=== PATIENT | female | born 1995 | race Two or more races ===

== ENCOUNTER 2016-06-06 12:45 | Emergency (ER) | payer OTHER, MEDICAID ==
[2016-06-06 13:30] LABS: SPECIFIC GRAVITY 1.015 (1.001-1.030); URINE BILIRUBIN NEGATIVE (NEGATIVE); URINE BLOOD 4+ (NEGATIVE); URINE GLUCOSE (UA) NEGATIVE (NEGATIVE); URINE LEUKOCYTE ESTERASE NEGATIVE (NEGATIVE); URINE NITRITE NEGATIVE (NEGATIVE); URINE PROTEIN NEGATIVE (NEGATIVE); URINE UROBILINOGEN NORMAL (0-1 mg/dl)
[2016-06-06 13:31] LABS: URINE APPEARANCE HAZY; URINE COLOR YELLOW
[2016-06-06 14:14] LABS: URINE RBC >100 /hpf
[2016-06-06 14:15] LABS: URINE BACTERIA FEW; URINE EPITHELIAL CELLS 0-1 /hpf; URINE WBC NEG /hpf
--- NOTE | 2016-06-06 17:03 | US ---
RENALS/BLADDER COMPARISON: None. HISTORY: 21 weeks with right flank pain and hematuria. FINDINGS: Right kidney: Normal size, 11.1 x 6.1 x 5.3 cm. Normal echogenicity and cortical thickness 10.3 mm. Resistive index 0.72. Moderate hydronephrosis. Left kidney: Normal size, 10.4 x 5.6 x 5.4 cm. Cortical thickness 8.8 mm. Resistive index 0.69. No hydronephrosis. Ureters: The right ureteral jet was not visible. Normal left ureteral jet. Urinary bladder: Prevoid volume 95 mL. IMPRESSION: Right hydronephrosis and hydroureter suspicious for obstructing stone. There is no right ureteral jet. Report was sent to the emergency department [email or web address] record [facility] 06/06/2016 at 16:59
--- NOTE | 2016-06-06 17:04 | US ---
OB LIMITED COMPARISON: OB ultrasound complete greater than 14 weeks 05/28/2016 HISTORY: Gestational age 21 weeks 6 days. Right flank pain. Hematuria. Evaluate for abruption. Technique: Transabdominal FINDINGS: Gestation: Single. Position: Breech Placenta: Posterior. No previa. No abruption. Maturation grade I. Amniotic fluid volume: Subjectively normal. heart rate 153 bpm. IMPRESSION: 1. Normal placenta located posterior wall. No previa or abruption. Report was sent to the emergency department [employer] [facility] record system 06/06/2016 at 17:01
== END 2016-06-06 17:22 | disposition home or self-care (01) ==
LOC: ED 12:45 → FBC 12:45 → FBCOUT 12:45 → FBC 12:45 → EDSTATUS 14:45 → ED 17:22
DX: O26.892 Other specified pregnancy related conditions, second trimester (principal); Z3A.21 21 weeks gestation of pregnancy; N20.9 Urinary calculus, unspecified
CPT/HCPCS: 81001; 76770; 76815; 99283 ×2; 59050; 81002; G0463

== ENCOUNTER 2016-09-22 10:31 | Outpatient (CLI) | payer OTHER, MEDICAID ==
[2016-09-22 11:04] VITALS: BMI 39.6
== END 2016-09-22 11:58 | disposition home or self-care (01) ==
LOC: FBCOUT 10:31 → FBC 10:32 → FBCOUT 11:58
PROVIDERS: ATTEND Family Medicine
DX: Z34.83 Encounter for supervision of other normal pregnancy, third trimester (principal); Z3A.37 37 weeks gestation of pregnancy
CPT/HCPCS: 59025; G0463